=== PATIENT | male | born 1975 | race Caucasian/White ===

== ENCOUNTER 2016-10-18 12:25 | Emergency (ER) | payer OTHER ==
[~2016-10-18] VITALS: Ht 177.8 cm; Wt 117.6 kg
[2016-10-18 13:06] LABS: POINT-OF-CARE METER ID UU13113702
[2016-10-18 13:08] LABS: BASOPHIL COUNT 0.1 K/uL (0-0.1); EOSINOPHIL (%) 2.1 % (0-5); EOSINOPHIL COUNT 0.2 K/uL (0-0.3); HEMATOCRIT 47.4 % (38.0-50.0); IMMATURE GRANULOCYTE (%) 0.5 % (0.0-0.7); IMMATURE GRANULOCYTE COUNT 0.1 K/uL; INSTRUMENT ABS NEUTROPHIL CT 7.7 K/uL; LYMPHOCYTE COUNT 1.8 K/uL (1.0-2.8); MCH 28.1 PG (29.0-34.0); MCHC 33.5 G/DL (30.0-36.0); MCV 83.7 FL (86-99); MEAN PLAT.VOLUME 10.8 uM^3 (9.0-12.4); MONOCYTE COUNT 1.1 K/uL (0-0.8); NEUTROPHIL (%) 70.8 % (45-76); NEUTROPHIL COUNT 7.7 K/uL (1.8-6.4); PLATELET COUNT 283 K/uL (156-360); RBC DIS.WIDTH-CV 12.3 % (11.8-14.6); RBC DIS.WIDTH-SD 37.6 % (39-53); RED BLOOD COUNT 5.66 M/uL (4.00-5.50); WHITE BLOOD COUNT 10.9 K/uL (4.1-10.2)
[2016-10-18 13:23] LABS: CHLORIDE 107 mEq/L (99-109); POTASSIUM 4.1 mEq/L (3.7-5.4); SODIUM 140 mEq/L (136-147)
[2016-10-18 13:25] LABS: GLUCOSE 112 mg/dL (70-99)
[2016-10-18 13:27] LABS: ANION GAP 9 MEQ/L (2-14); TOTAL BILIRUBIN 0.3 mg/dL (0.0-1.0)
[2016-10-18 13:29] LABS: ALKALINE PHOSPHATASE 58 IU/L (3-129); GFR ESTIMATE (CALCULATED) > 59 mL/min/
[2016-10-18 13:30] LABS: TROP-I INTERPRETATION NEGATIVE; TROPONIN-I < 0.01 ng/mL (0.0-0.30); UREA NITROGEN (BUN) 13 mg/dL (9-23)
[2016-10-18 13:32] LABS: CREATINE KINASE 83 IU/L (1-294); TOTAL CK 83 IU/L (1-294)
[2016-10-18 13:38] LABS: CK-MB 0.7 ng/mL (0.0-4.9)
[2016-10-18 14:51] VITALS: BP 134/73
== END 2016-10-18 14:55 | disposition home or self-care (01) ==
LOC: EME 12:25
PROVIDERS: Emergency Medicine
DX: R42 Dizziness and giddiness (principal)
CPT/HCPCS: 71020; 80053; 82550; 82553; 82948; 84484; 85025; 93005; 99281; 99284; J7030

== ENCOUNTER 2016-12-01 14:16 | Emergency (ER) | payer OTHER ==
[~2016-12-01] VITALS: Ht 177.8 cm; Wt 115.4 kg
[2016-12-01 17:54] VITALS: BP 143/90
== END 2016-12-01 17:55 | disposition home or self-care (01) ==
LOC: EME 14:16
DX: R42 Dizziness and giddiness (principal); R09.81 Nasal congestion
CPT/HCPCS: 93005; 99281; 99284